=== PATIENT | female | born 1940 | race Caucasian/White ===

== ENCOUNTER 2017-02-07 22:45 | Emergency (ER) | payer OTHER ==
[~2017-02-07] VITALS: Ht 165.1 cm; Wt 56.0 kg
[2017-02-07 23:01] VITALS: Ht 165.1 cm; Wt 56.0 kg
[2017-02-08 02:18] VITALS: BP 165/84; PULSE 74; RESP 18; TEMP 98.4
--- NOTE | 2017-02-08 05:48 | ERD ---
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 Symptoms are currently resolved. The patient did state that she had 2 very small blood clots that she spit out of her mouth. She does no longer feel blood going down the back of her posterior pharynx. She does not take blood thinners, except for baby aspirin every morning. She denies having similar symptoms in the past. No headache, chest pain, shortness of breath, or other symptoms reported currently. ROS All systems reviewed and are negative except as per history of present illness. Allergies Allergies: Coded Allergies: No Known Allergy (Unverified , 02/07/17) PMhx/Soc Hx Alcohol Use: No Hx Substance Use: No Hx Tobacco Use: No Smoking Status: Never smoker Physical Exam Vitals Vital Signs Date Time Temp Pulse Resp B/P Pulse Ox O2 Delivery O2 Flow Rate FiO2 02/08/17 02:18 98.4 74 18 165/84 97 02/07/17 23:01 98.3 89 18 187/93 97 Physical Exam Const: Nontoxic, well-appearing female in no acute distress. Head: Atraumatic Eyes: Normal Conjunctiva ENT: Normal External Ears, Nose and Mouth. There is a small amount of fresh blood noted in the anterior portion of the left nares. No posterior bleeding identified. The posterior pharynx is clear with no blood present. Neck: Full range of motion..~ No meningismus. Resp: Clear to auscultation bilaterally Cardio: Regular rate and rhythm, no murmurs Abd: Soft, non tender, non distended. Normal bowel sounds Skin: No petechiae or rashes Back: No midline or flank tenderness Ext: No cyanosis, or edema Neur: Awake and alert Psych: Normal Mood and Affect Procedures/MDM 76-year-old female presents to the emergency department with complaints of epistaxis. On exam there is no current epistaxis. The posterior pharynx is clear. The patient is neurovascularly intact. The patient has no symptoms concerning for TIA, CVA, or intracranial hemorrhage. I have low suspicion for posterior bleed. The patient was counseled regarding on proper way to stop epistaxis effectively. I have low suspicion for intracranial hemorrhage, anemia , or other emergent conditions. The patient was advised to have close follow- up with her primary care physician. The patient did have elevated blood pressure at 187/93, however she does have a history of hypertension and did not take her medication tonight. Patient's blood pressure was elevated (>120/80) but appears stable without evidence of hypertension emergency or urgency. The patient was counseled about the risks of hypertension and urged to pursue outpatient monitoring and therapy within a week with their primary care physician. Blood pressure lowered prior to discharge to 165/84. Strict ER return precautions were discussed with the patient and she demonstrated good understanding. These were reiterated to her grandson who was assisting with translation and was present with her during her visit to the emergency department. The patient agreed with the discharge plan and diagnosis and her questions and concerns were addressed per Departure Diagnosis: Primary Impression: Epistaxis Condition: Fair Patient Instructions: Epistaxis (Adult) Referrals: [facility] YOU HAVE RECEIVED A MEDICAL SCREENING EXAM AND THE RESULTS INDICATE THAT YOU DO NOT HAVE A CONDITION THAT REQUIRES URGENT TREATMENT IN THE EMERGENCY DEPARTMENT. FURTHER EVALUATION AND TREATMENT OF YOUR CONDITION CAN WAIT UNTIL YOU ARE SEEN IN YOUR DOCTORS OFFICE WITHIN THE NEXT 1-2 DAYS. IT IS YOUR RESPONSIBILITY TO MAKE AN APPOINTMENT FOR FOLOW-UP CARE. IF YOU HAVE A PRIMARY DOCTOR --you should call your primary doctor and schedule an appointment IF YOU DO NOT HAVE A PRIMARY DOCTOR YOU CAN CALL OUR PHYSICIAN REFERRAL HOTLINE AT IF YOU CAN NOT AFFORD TO SEE A PHYSICIAN YOU CAN CHOSE FROM THE FOLLOWING [facility] [address] [facility] [address] [facility] [facility] [address] [facility] [address] [facility] [address] [facility]. [facility]. [address] Additional Instructions: No mas mejor en 2-3 edwards, regresar. Mas peor en 24 horas, regresear rapidamente. Ir a doctor primario in 5-7 edwards. Usar instrucciones cuando anabelle medicamento. GEOVANNI SULLIVAN PA-C Feb 08, 2017 05:48
== END 2017-02-08 02:20 | disposition home or self-care (01) ==
LOC: FTE 22:45
DX: R04.0 Epistaxis (principal)
CPT/HCPCS: 99282